=== PATIENT | female | born 1965 | race Caucasian/White ===

== ENCOUNTER 2016-10-14 12:09 | Emergency (ER) | payer OTHER ==
--- NOTE | 2016-10-14 13:30 | DIAGNOSTIC IMAGING REPORT ---
PROCEDURE: CT HEAD WITHOUT CONTRAST INDICATION: STROKE TECHNIQUE: Axial CT images were acquired through the head. Coronal and sagittal reformations were created. COMPARISON: None. FINDINGS: No intracranial hemorrhage or extraaxial fluid collections. Ventricles are normal in size, shape and position. There is no mass, mass effect or midline shift. The anguiano-white matter differentiation is normal. There is no edema. The calvarium is intact. The paranasal sinuses and mastoid air cells are normally aerated. The extracranial soft tissues and orbits are normal. IMPRESSION: 1. No CT evidence of acute intracranial process. 2. Findings discussed with Dr. Lujan at 1;[address] scans at this facility use dose modulation, iterative reconstruction, and/or weight-based dosing when appropriate to reduce radiation dose to as low as reasonably achievable.
--- NOTE | 2016-10-14 13:41 | DIAGNOSTIC IMAGING REPORT ---
PROCEDURE: CTA HEAD AND NECK INDICATION: STROKE SYMPTOMS TECHNIQUE: Axial thin-slice CTA images through the neck and head were acquired following uncomplicated administration of 90 CC Isovue 370 IV contrast. Coronal and sagittal MIP reformations were created. COMPARISON: Head CT 10/15/2015 FINDINGS: Head: Anterior circulation: No evidence of aneurysm, dissection or vasculitis. Posterior circulation: No evidence of aneurysm, dissection or vasculitis. Other findings: No evidence of emboli and/or vessel occlusion. Neck: Carotid system: No evidence of aneurysm, dissection or vasculitis. Vertebral system: No evidence of aneurysm, dissection or vasculitis. Other findings: No evidence of emboli and/or vessel occlusion. IMPRESSION: 1. Normal CT angiogram of the brain and head/neck. 2. Results were called to the emergency department at 01:30 p.m.
--- NOTE | 2016-10-14 15:06 | ED ORDER SUMMARY ---
..... Patient: JOE BILLS OrderSheet [facility] VisitID: [id number] [address] [place] [address] 51y, F Registration Date/Time: 10/14/2016 ORDER SHEET Weight: 67.1 kg (stated) Allergies: None GENERAL ORDERS: Conservation Scientist (Continuous) (12:32 10/14/2016 JBoardley R.N. per protocol) (12:32 JBoardley R.N.) Pulse oximeter (12:32 10/14/2016 JBoardley R.N. per protocol) (12:32 JBoardley R.N.) EKG - ER Stat (12:32 10/14/2016 JBoardley R.N. per protocol) (12:32 JBoardley R.N.) Vitals (12:32 10/14/2016 JBoardley R.N. per protocol) (12:32 JBoardley R.N.) CT Head wo Cont Urgent (12:36 10/14/2016 Frieda Aaron) (Ack 12:41 PWeiler ER Tech1) (13:17 PWeiler ER Tech1) CTA Head and Neck (No) (not needed) Urgent (12:36 10/14/2016 Frieda Aaron) (Ack 12:41 PWeiler ER Tech1) (13:17 PWeiler ER Tech1) Stroke Panel Stat (12:37 10/14/2016 Frieda Aaron) (Ack 12:41 PWeiler ER Tech1) (13:10 JBoardley R.N.) UA-Culture if indicated Urgent (13:42 10/14/2016 JBoardley R.N. per protocol) (Ack 13:43 PWeiler ER Tech1) (13:43 PWeiler ER Tech1) MEDICATION ORDERS: IV FLUIDS: IV Saline Lock (12:32 10/14/2016 JBoardley R.N. per protocol) (12:33 JBoardley R.N.) ORDER SHEET NOTES: [Electronically signed by Adonis Bauman R.N. (18:12 10/14/2016)] [Electronically signed by Tai Hawkins Dr. (16:56 10/15/2016)] [Electronically locked/signed by Adonis Bauman R.N. (18:12 10/14/2016)]
--- NOTE | 2016-10-14 15:06 | ED CLINICAL REPORT ---
Clinical Report - Physicians/Mid Levels [facility] [address] [place] [address] 10/14/2016 12:13 Patient: JOE BILLS Time Seen: 1215. Arrived- By private vehicle. Historian- patient. HISTORY OF PRESENT ILLNESS Chief Complaint: WEAKNESS. This started just prior to arrival today about 10:30am, patient was last known well (10:29am) and is still present. It was abrupt in onset and has been constant but is not gone now. The patient has had localized weakness of the right leg (moderate), right foot (moderate), left face (moderate), left leg (moderate) and left foot (moderate). She has had localized numbness of the right leg (moderate), right foot (moderate) and left face (moderate). No impaired speech or swallowing or recent fall. She has had visual disturbance with double vision. At its maximum deficit described as moderate. When seen in the E.D.,deficit described as moderate. No dizziness, altered mental status, seizure or blackouts. Usually is alert and oriented X3 and has normal mobility. (patient states she can not get the "clot busting drug." I don't know why. talk to my .). Similar symptoms previously: (a few times). Recent medical care: The patient was seen recently by a health care provider. REVIEW OF SYSTEMS No fever, chest pain, difficulty breathing or skin rash. All systems otherwise negative, except as recorded above. PAST HISTORY See nurses notes. Medications: LamoTRIgine Oral. Adderall Oral. TraZODone HCl Oral. Allergies: None. SOCIAL HISTORY Never smoker. No alcohol use or drug use. No recent travel. Is a local resident. ADDITIONAL NOTES The nursing notes have been reviewed. PHYSICAL EXAM Vital Signs: 10/14/2016 12:06 BP: 135/85. HR: 92. RR: 22. O2 saturation: 100%. Temp: 98.1 F. Pain level now: 0/10. Oxygen saturation normal. Appearance: Alert. No acute distress. Speech is not slurred. Head: Head atraumatic. Eyes: Pupils equal, round and reactive to light. ENT: Normal ENT inspection. Airway intact. Pharynx normal. Neck: Normal inspection. Neck supple. No meningeal signs. CVS: Normal heart rate and rhythm. Heart sounds normal. Pulses normal. Respiratory: No respiratory distress. Breath sounds normal. Abdomen: Soft and nontender. No organomegaly. Skin: Skin warm and dry. Normal skin color. No rash. Normal skin turgor. Extremities: Extremities exhibit normal ROM. No lower extremity edema. Neuro: Alert. Oriented X 3. Mood/affect normal. Speech normal. No abnormal finger-nose test. Normal gait. (4+/5 strength in the left lower extremity as well as left upper extremity. Left facial droop. Tongue deviates to the left. no pronator drift.). LABS, X-RAYS, AND EKG EKG: No acute ischemia. Normal sinus rhythm. Normal P waves. Normal ERNESTO. Normal QRS complex. Normal axis. Normal QT and QTc. No ST elevation or depression. The study has been interpreted contemporaneously. The study has been independently viewed by me. The EKG appears to be a good tracing. Laboratory Tests: UA-Culture if indicated: (JULI: 10/14/2016 13:35) ( MsgRcvd 10/14/2016 14:14) Final results Test Result Flag Units (Reference) URINE COLOR YELLOW URINE APPEARANCE CLEAR URINE GLUCOSE NEGATIVE (NEGATIVE) URINE BILIRUBIN NEGATIVE (NEGATIVE) URINE KETONE NEGATIVE (NEGATIVE) URINE SPECIFIC GRAVITY 1.010 (1.010-1.030) URINE PH 7.5 (5.0-8.0) URINE PROTEIN NEGATIVE (NEGATIVE) URINE UROBILINOGEN 0.2 EU/dL (0.2-1.0) URINE NITRITE NEGATIVE (NEGATIVE) URINE BLOOD NEGATIVE (NEGATIVE) URINE LEUK ESTERASE NEGATIVE (NEGATIVE) URINE RBC NONE SEEN rbc/hpf (0-1) URINE WBC 0-1 wbc/hpf (0-1) URINE EPITHELIAL CELLS 0-1 EPI/hpf (0-5) URINE BACTERIA NONE SEEN (NONE SEEN) URINE COMMENT CULT NOT INDICATED URINE CULTURES ARE SET-UP BASED ON THE FOLLOWING CRITERIA:POSITIVE NITRITEPOSITIVE LEUKOCYTE ESTERASEGREATER THAN 10 WHITE BLOOD CELLSMODERATE (2+) OR GREATER BACTERIA CBC w Diff: (JULI: 10/14/2016 12:20) ( MsgRcvd 10/14/2016 12:45) Final results Test Result Flag Units (Reference) WHITE BLOOD COUNT 3.9 L K/uL (4.5-11.5) RED BLOOD COUNT 4.57 M/uL (4.00-5.20) HEMOGLOBIN 13.8 gm/dL (12.0-16.0) HEMATOCRIT 40.5 % (36.0-46.0) MEAN CELL VOLUME 89 fL (80-100) MEAN CORPUSCULAR HGB 30 pg (26-34) MEAN CORPUSCULAR HGB CONC 34 g/dL (31-37) RED CELL DISTRIBUTION WIDTH 13.2 % (11.6-14.8) PLATELET COUNT 337 K/uL (150-400) NEUTROPHIL % 49.1 L % (50-75) LYMPH % 42.8 H % (25-40) MONO % 7.2 % (3-14) EOSINOPHIL % 0.4 % (0-4) BASOPHIL % 0.5 % (0-2) PT with INR: (JULI: 10/14/2016 12:20) ( MsgRcvd 10/14/2016 12:59) Final results Test Result Flag Units (Reference) INR 0.8 (0.8-1.2) Low Intensity Therapy: INR 1.5-2.0 PT range 18.5-23.1Mod.Intensity Therapy: INR 2.0-3.0 PT range 23.1-31.5High Intensity Therapy: INR 2.5-3.5 PT range 27.4-35.5High Intensity Therapy 2: INR 3.0-4.0 PT range 31.5-39.3 APTT 26 SECONDS (24-34) FIBRINOGEN 373 mg/dL (193-455) D-DIMER QUANTITATIVE < 0.27 L ug/mLFEU (0.27-0.52) The primary value of this quantitative assay relates toits negative predictive value (i.e. exclusion) of pulmonaryembolism/deep vein thrombosis/DIC.Elevated levels of d-dimer may also occur with:, age, cancer, inflammation, liver disease,post-op, infection, hematoma, coronary disease, peripheralarteriopathy, bleeding disorders and thrombolytic treatment.Results should be correlated with other clinical andradiological data.Testing Methodology: Latex Immunoassay CMP: (JULI: 10/14/2016 12:20) ( MsgRcvd 10/14/2016 12:57) Final results Test Result Flag Units (Reference) GLUCOSE 111 H mg/dL (70-110) BUN 22 H mg/dL (7-18) CREATININE 0.8 mg/dL (0.6-1.3) Estimated GFR >60 mL/min Estimated GFR- >60 mL/min Note: Persistent reduction over 3 months in eGFR<60 mL/min/1.73 m2 defines CKD. Patients with eGFR values>=60 mL/min/1.73 m2 may also have CKD if evidence ofpersistent proteinuria. Additional information may be foundat www.[email or web address].org. SODIUM 136 mmol/L (136-145) POTASSIUM 3.7 mmol/L (3.5-5.1) CHLORIDE 99 mmol/L (98-107) CARBON DIOXIDE 25 mmol/L (21-32) CALCIUM 9.5 mg/dL (8.5-10.1) TOTAL PROTEIN 8.1 g/dL (6.4-8.2) ALBUMIN 3.9 g/dL (3.3-5.0) BILIRUBIN, TOTAL 0.6 mg/dL (0.0-1.0) ALKALINE PHOSPHATASE 80 U/L (46-116) AST (SGOT) 19 U/L (15-37) ALT (SGPT) 30 U/L (12-78) . PROGRESS AND PROCEDURES Course of Care: the patient is a pleasant 51-year-old female presenting for evaluation of neurological symptoms. Patient reports that she is not to have tPA. Patient is not sure of the reason for this. Patient states that her will now. Patient was activated as a code stroke because of her focal neurological deficits. There are also acute in onset. Patient is agreeable to the treatment and plan. Laboratory studies including CT scan of the head with and without contrast has been ordered. Patient has a somewhat concerning story given that these have been happening frequently. Medical records have been requested from [facility]. Patient's medical records indicates that patient had a similar symptom and presentation last time at [facility]. Symptoms had spontaneously resolved. TPA was not given at that time. Was able to speak to the spouse who states that their neurologist cautioned them against using the clotbusting drug because of the complications would outweigh the benefits. Symptoms were likely to resolve spontaneously from their recollection of the conversation with neurology. In the emergency department, the patient's symptoms did significantly improved while here in the emergency department spontaneously. Patient without any signs of focal neurological deficits at this time. CT scan of laboratory studies are unremarkable. Because of the patient's rapid improvement of her symptoms, do not feel TPA is indicated. Also concern for other etiologies for the patient's focal neurological deficits including seizure typeabnormalities. Patient had already obtained a MRI was normal results according to her [facility] records. Patient will be encouraged to follow up with her primary care doctor and neurology. Patient states that she has an appointment in the next few days. Patient was monitored here in the emergency Department further until all of her symptoms had significantly improved or resolved. because of the patient's unusual history, do not fill patient is being admitted to the hospital require further emergency department workup/evaluation. Did offer monitoring in the emergency department and hospital under observation for possible TIA. Patient states she is starting had a complete workup which did not show anything. Patient states that her neurologist told her to go to the nearest hospital if there is an emergency however to follow up with them in [facility] if her symptoms did return. Discussed with the patient her workup here in the emergency department including her diagnosis, home care, follow-up, and return precautions. All questions have been answered. The patient expressed understanding of these instructions and was agreeable to them. Prior to patient's departure from the emergency department she is noted to have no facial droop. No weakness noted on examination. Patient is in no acute distress. No fever. No concern for Meningitis or serious bacterial infection at this time. Disposition: Discharged. Condition: good. CLINICAL IMPRESSION 10/14/2016 13:49 BP: 123/71. HR: 83. RR: 17. O2 saturation: 100%. Temp: 97.9 F. Blood pressure normal. Oxygen saturation normal. Multiple acute and recent transient ischemic attacks. Paresthesia (acute improved). INSTRUCTIONS Warnings: GENERAL WARNINGS: Return or contact your physician immediately if your condition worsens or changes unexpectedly, if not improving as expected, or if other problems arise. Specifically return if pain, vomiting, bleeding, breathing difficulty or fever. return of symptoms or other concerns. Your Current Medications: CONTINUE TAKING THE FOLLOWING MEDICATIONS: Adderall Oral. LamoTRIgine Oral. TraZODone HCl Oral. Follow-up: Return to the emergency department as needed. Follow up with your doctor in three days. Reason for referral: recheck today's concerns. Summary of care provided to patient via paper. Screening today revealed the patient's blood pressure to be in the normal range. The patient should follow up with a primary care provider for blood pressure management. Understanding of the discharge instructions verbalized by patient. (Electronically signed by Tai Hawkins Dr. 10/15/2016 16:56)
--- NOTE | 2016-10-14 15:06 | ED ORDER SUMMARY ---
..... Patient: JOE BILLS OrderSheet [facility] VisitID: [id number] [address] [place] [address] 51y, F Registration Date/Time: 10/14/2016 ORDER SHEET Weight: 67.1 kg (stated) Allergies: None GENERAL ORDERS: Ruffler (Continuous) (12:32 10/14/2016 JBoardley R.N. per protocol) (12:32 JBoardley R.N.) Pulse oximeter (12:32 10/14/2016 JBoardley R.N. per protocol) (12:32 JBoardley R.N.) EKG - ER Stat (12:32 10/14/2016 JBoardley R.N. per protocol) (12:32 JBoardley R.N.) Vitals (12:32 10/14/2016 JBoardley R.N. per protocol) (12:32 JBoardley R.N.) CT Head wo Cont Urgent (12:36 10/14/2016 Frieda Aaron) (Ack 12:41 PWeiler ER Tech1) (13:17 PWeiler ER Tech1) CTA Head and Neck (No) (not needed) Urgent (12:36 10/14/2016 Frieda Aaron) (Ack 12:41 PWeiler ER Tech1) (13:17 PWeiler ER Tech1) Stroke Panel Stat (12:37 10/14/2016 Frieda Aaron) (Ack 12:41 PWeiler ER Tech1) (13:10 JBoardley R.N.) UA-Culture if indicated Urgent (13:42 10/14/2016 JBoardley R.N. per protocol) (Ack 13:43 PWeiler ER Tech1) (13:43 PWeiler ER Tech1) MEDICATION ORDERS: IV FLUIDS: IV Saline Lock (12:32 10/14/2016 JBoardley R.N. per protocol) (12:33 JBoardley R.N.) ORDER SHEET NOTES: [Electronically signed by Adonis Bauman R.N. (18:12 10/14/2016)] [Electronically signed by Tai Hawkins Dr. (16:56 10/15/2016)] [Electronically locked/signed by Adonis Bauman R.N. (18:12 10/14/2016)]
--- NOTE | 2016-10-14 15:06 | ED NURSING NOTES ---
Clinical Report - Nurses [facility] [address] [place] [address] 10/14/2016 12:13 Patient: JOE BILLS TRIAGE Triage time 12:06. Acuity: LEVEL 3. Chief Complaint: SYNCOPE. 12:10/14/16. 12:10/14/16. Alert. ( Pt arrives by EMS. Per EMS patient has been having syncope off and on. Last time was 4 weeks ago. Per EMS, pt had surgical intervention with possible "slipping of a disk" requiring cortisone injections. Per EMS, her syncope and weakness has become worse.). SEPSIS SCREEN: Sepsis Screen. Negative (no infection suspected/documented). AVE COMA SCORE: [place] Coma Scale: 15- eyes open spontaneously (4); best verbal response- oriented x 4 (5); best motor response- obeys commands (6). --12:35 Adonis Bauman R.N. 12:06 10/14/16. BP: 135/85. HR: 92. RR: 22. O2 saturation: 100% on room air. Temp: 98.1 F (oral). Pain level now: 0/10. --12:35 Adonis Bauman R.N. Weight: 67.1 kg stated. Height/Length: 66 inches Per Patient. BMI: 23.9. --12:13 Adonis Bauman R.N. Medications TraZODone HCl Oral. --12:34 Adonis Bauman R.N. Adderall Oral. --12:34 Adonis Bauman R.N. LamoTRIgine Oral. --12:34 Adonis Bauman R.N. Allergies None. --12:35 Adonis Bauman R.N. Medication/allergy information source: the patient and patient's family and EMS. --12:35 Adonis aBuman R.N. History Arrived by EMS. Historian: patient. Accompanied by family. [facility] 12:10/14/16. This started today. Patient was witnessed to be last known well (1030). ( Pt drove self to daughters house, EMS was called). She has had new onset of weakness of the left face, arm, leg and foot. Treatment EVENT SPECIALIST: None. See EMS report. EMS treatment EVENT SPECIALIST verbally communicated and report reviewed. See report. Finger stick glucose performed (123). BP: 138 / 82. HR: 88. RR: 18. O2 saturation: 98 % room air. ( FAST exam was negative by eval by EMS, pt came in by BLS). PAST MEDICAL HX: Immunizations: up-to-date. Last normal menstrual period- 1 month ago. SOCIAL HX: Never smoker. No alcohol use or drug use. No infectious disease exposure. ABUSE ASSESSMENT: No report of abuse. FALL RISK ASSESSMENT: Fall risk assessment completed. No fall risk identified. NUTRITIONAL RISK ASSESSMENT: The nutritional risk assessment revealed no deficiencies. FUNCTIONAL ASSESSMENT: Functional assessment: no impairments noted. LEARNING NEEDS ASSESSMENT: The learning needs assessment revealed no barriers. SKIN INTEGRITY ASSESSMENT: Skin integrity risk assessment completed. No skin integrity risk identified. --12:35 Adonis Bauman R.N. PROBLEMS: Cortisone Injection for Spinal Pain. TIA - Transient Ischemic Attack. --12:29 Adonis Bauman R.N. PTSD. Bipolar Disorder. ADHD - Attention Deficit Hyperactivity Disorder. --12:35 Adonis Bauman R.N. ADDITIONAL SURGERIES: C-5-C-6 fusion. --12:29 Adonis Bauman R.N. Assessment 12:10/14/16. --12:35 Adonis Bauman R.N. Interventions 12:10/14/16. 12:10/14/16. ID and allergy band on patient. To treatment room. --12:35 Adonis Bauman R.N. PHYSICAL ASSESSMENT 12:10/14/16. To room via stretcher. GENERAL / NEURO / PSYCH: Alert. Oriented X 4. Speech within normal limits. Patient appears well-nourished and neat and clean. ( Left arm, left leg weak as compared to right). HEENT: Pupils equal, round and reactive to light. RESPIRATORY: Respirations not labored. CVS: Normal sinus rhythm noted. SKIN: Skin is warm and dry. --12:17 Adonis Bauman R.N. NURSING PROGRESS NOTES 12:16 10/14/16. Cardiac rhythm: normal sinus rhythm. The plan of care for this patient has been created. site monitor, pulse oximeter and NIBP monitor placed on patient; monitor alarms on. EKG time: (1218). EKG was ordered, performed by a tech and shown to the ED physician. Patient gowned. Head of bed elevated. Reassurance given. Two patient identifiers checked. Call light placed in reach. Side rails up x 2. Bed placed in lowest position. Brakes of bed on. Patient ready for evaluation- chart flagged and ED physician notified. --12:17 Adonis Bauman R.N. 12:33 10/14/2016 Site #1 started via IV in the right antecubital space with an 20g angiocath, with aseptic technique and good blood return; one attempt. Blood drawn: rainbow set. Labeled in the presence of the patient and sent to the lab. Saline lock flushed with 10 mL saline. --12:33 Adonis Bauman R.N. 12:39 10/14/16. ( MD at bedside, at 1208, eval completed). --12:39 Adonis Bauman R.N. 12:40 10/14/16. ( Daughter at bedside, Code Stroke not called overhead, CT scanner is not clear at this time for CT). --12:40 Adonis Bauman R.N. 12:40 10/14/16. Cardiac rhythm: normal sinus rhythm. --12:40 Adonis Bauman R.N. 12:40 10/14/16. BP: 151/91. HR: 100. RR: 22. O2 saturation: 100% on nasal cannula at 2 liters/minute. --12:40 Adonis Bauman R.N. Patient transported to CT by stretcher with tech. --12:51 Vale Bellamy R.N. Patient returned from CT by stretcher with tech. --13:15 Vale Bellamy R.N. 13:19 10/14/16. Cardiac rhythm: normal sinus rhythm; (83). --13:19 Adonis Bauman R.N. 13:18 10/14/16. BP: 125/76. HR: 81. RR: 19. O2 saturation: 100% on nasal cannula at 2 liters/minute. --13:19 Adonis Bauman R.N. 8 fr in/out catheterization. During procedure hand hygiene observed and sterile equipment and aseptic technique used. Return of 300 mL yellow-colored clear urine; odor is normal. She tolerated procedure well. Patient ID band checked for patient name and birthdate: patient confirmed. Instructions provided to collect clean catch urine and patient verbalized understanding. Catheterized urine collected with return of yellow-colored clear urine; odor is normal; sample sent to lab for urinalysis and culture. Specimen labeled in the presence of the patient. --13:35 Vale Bellamy R.N. 13:54 10/14/16. Cardiac rhythm: normal sinus rhythm. --13:54 Adonis Bauman R.N. 13:49 10/14/16. BP: 123/71. HR: 83. RR: 17. O2 saturation: 100% on nasal cannula at 2 liters/minute. Temp: 97.9 F (oral). --13:54 Adonis Bauman R.N. Intake & Output 13:55 10/14/16. Urine: 300 mL. --13:55 Adonis Bauman R.N. NIH STROKE SCALE: 12:36 10/14/16. 12:38 10/14/16. Score 7. Level of Consciousness: drowsy (1). LOC Questions: both (0). LOC Commands: both (0). Best gaze: normal (0). Visual field loss: none (0). Facial palsy: minor (1) and (Left facial). Motor arm: no drift right arm (0) and drift left arm (1). Motor leg: no drift right leg (0) and no drift left leg (0). Limb ataxia: one limb (1) and (Left arm). Sensory loss: mild to moderate (1). Aphasia: mild to moderate (1). Dysarthria: mild to moderate (1). Extinction and inattention: none (0). --12:38 Adonis Bauman R.N. 15:10 10/14/16. Score 0. Level of Consciousness: alert (0). LOC Questions: both (0). LOC Commands: both (0). Best gaze: normal (0). Visual field loss: none (0). Facial palsy: normal (0). Motor arm: no drift right arm (0) and no drift left arm (0). Motor leg: no drift right leg (0) and no drift left leg (0). Limb ataxia: none (0). Sensory loss: none (0). Aphasia: none (0). Dysarthria: normal (0). Extinction and inattention: none (0). --15:10 Adonis Bauman R.N. DISPOSITION / DISCHARGE 15:10/14/2016 Site #1 removed upon discharge. Catheter intact. Bandaid applied. --15:09 Adonis Bauman R.N. 15:10/14/16. Cardiac rhythm: normal sinus rhythm. Condition at departure: improved. The goals identified in the patient's plan of care were met. ( Pt feels better and will follow up with PCP, CARLIN). No learning barriers present. Discharge instructions provided and reviewed with the patient. Reviewed warnings. Reviewed medication(s). Treatments reviewed. Patient verbalized understanding. Written instructions provided in Finnish. The patient was discharged by the physician. She was discharged home and accompanied by family. She left the Emergency Department ambulatory and via private vehicle. Family member driving. FALL RISK ASSESSMENT: Fall risk assessment completed. No fall risk identified. --15:11 Adonis Bauman R.N. 15:08 10/14/16. BP: 119/72. HR: 80. RR: 15. O2 saturation: 99% on room air. Temp: 98.3 F (oral). Pain level now: 0/10. --15:11 Adonis Bauman R.N. 15:10/14/16. Departure time: 15:Oct 14 2016. --15:11 Adonis Bauman R.N. Locked/Released at 10/14/2016 18:12 by Adonis Bauman R.N.
--- NOTE | 2016-10-14 15:06 | ED NURSING NOTES ---
Clinical Report - Nurses [facility] [address] [place] [address] 10/14/2016 12:13 Patient: JOE BILLS TRIAGE Triage time 12:06. Acuity: LEVEL 3. Chief Complaint: SYNCOPE. 12:10/14/16. 12:10/14/16. Alert. ( Pt arrives by EMS. Per EMS patient has been having syncope off and on. Last time was 4 weeks ago. Per EMS, pt had surgical intervention with possible "slipping of a disk" requiring cortisone injections. Per EMS, her syncope and weakness has become worse.). SEPSIS SCREEN: Sepsis Screen. Negative (no infection suspected/documented). AVE COMA SCORE: [place] Coma Scale: 15- eyes open spontaneously (4); best verbal response- oriented x 4 (5); best motor response- obeys commands (6). --12:35 Adonis Bauman R.N. 12:06 10/14/16. BP: 135/85. HR: 92. RR: 22. O2 saturation: 100% on room air. Temp: 98.1 F (oral). Pain level now: 0/10. --12:35 Adonis Bauman R.N. Weight: 67.1 kg stated. Height/Length: 66 inches Per Patient. BMI: 23.9. --12:13 Adonis Bauman R.N. Medications TraZODone HCl Oral. --12:34 Adonis Bauman R.N. Adderall Oral. --12:34 Adonis Bauman R.N. LamoTRIgine Oral. --12:34 Adonis Bauman R.N. Allergies None. --12:35 Adonis Bauman R.N. Medication/allergy information source: the patient and patient's family and EMS. --12:35 Adonis Bauman R.N. History Arrived by EMS. Historian: patient. Accompanied by family. Primary [facility] 12:10/14/16. This started today. Patient was witnessed to be last known well (1030). ( Pt drove self to daughters house, EMS was called). She has had new onset of weakness of the left face, arm, leg and foot. Treatment SALES AGENT FINANCIAL REPORT SERVICE: None. See EMS report. EMS treatment SALES AGENT FINANCIAL REPORT SERVICE verbally communicated and report reviewed. See report. Finger stick glucose performed (123). BP: 138 / 82. HR: 88. RR: 18. O2 saturation: 98 % room air. ( FAST exam was negative by eval by EMS, pt came in by BLS). PAST MEDICAL HX: Immunizations: up-to-date. Last normal menstrual period- 1 month ago. SOCIAL HX: Never smoker. No alcohol use or drug use. No infectious disease exposure. ABUSE ASSESSMENT: No report of abuse. FALL RISK ASSESSMENT: Fall risk assessment completed. No fall risk identified. NUTRITIONAL RISK ASSESSMENT: The nutritional risk assessment revealed no deficiencies. FUNCTIONAL ASSESSMENT: Functional assessment: no impairments noted. LEARNING NEEDS ASSESSMENT: The learning needs assessment revealed no barriers. SKIN INTEGRITY ASSESSMENT: Skin integrity risk assessment completed. No skin integrity risk identified. --12:35 Adonis Bauman R.N. PROBLEMS: Cortisone Injection for Spinal Pain. TIA - Transient Ischemic Attack. --12:29 Adonis Bauman R.N. PTSD. Bipolar Disorder. ADHD - Attention Deficit Hyperactivity Disorder. --12:35 Adonis Bauman R.N. ADDITIONAL SURGERIES: C-5-C-6 fusion. --12:29 Adonis Bauman R.N. Assessment 12:10/14/16. --12:35 Adonis Bauman R.N. Interventions 12:10/14/16. 12:10/14/16. ID and allergy band on patient. To treatment room. --12:35 Adonis Bauman R.N. PHYSICAL ASSESSMENT 12:10/14/16. To room via stretcher. GENERAL / NEURO / PSYCH: Alert. Oriented X 4. Speech within normal limits. Patient appears well-nourished and neat and clean. ( Left arm, left leg weak as compared to right). HEENT: Pupils equal, round and reactive to light. RESPIRATORY: Respirations not labored. CVS: Normal sinus rhythm noted. SKIN: Skin is warm and dry. --12:17 Adonis Bauman R.N. NURSING PROGRESS NOTES 12:16 10/14/16. Cardiac rhythm: normal sinus rhythm. The plan of care for this patient has been created. reducing system operator, pulse oximeter and NIBP monitor placed on patient; monitor alarms on. EKG time: (1218). EKG was ordered, performed by a tech and shown to the ED physician. Patient gowned. Head of bed elevated. Reassurance given. Two patient identifiers checked. Call light placed in reach. Side rails up x 2. Bed placed in lowest position. Brakes of bed on. Patient ready for evaluation- chart flagged and ED physician notified. --12:17 Adonis Bauman R.N. 12:33 10/14/2016 Site #1 started via IV in the right antecubital space with an 20g angiocath, with aseptic technique and good blood return; one attempt. Blood drawn: rainbow set. Labeled in the presence of the patient and sent to the lab. Saline lock flushed with 10 mL saline. --12:33 Adonis Bauman R.N. 12:39 10/14/16. ( MD at bedside, at 1208, eval completed). --12:39 Adonis Bauman R.N. 12:40 10/14/16. ( Daughter at bedside, Code Stroke not called overhead, CT scanner is not clear at this time for CT). --12:40 Adonis Bauman R.N. 12:40 10/14/16. Cardiac rhythm: normal sinus rhythm. --12:40 Adonis Bauman R.N. 12:40 10/14/16. BP: 151/91. HR: 100. RR: 22. O2 saturation: 100% on nasal cannula at 2 liters/minute. --12:40 Adonis Bauman R.N. Patient transported to CT by stretcher with tech. --12:51 Vale Bellamy R.N. Patient returned from CT by stretcher with tech. --13:15 Vale Bellamy R.N. 13:19 10/14/16. Cardiac rhythm: normal sinus rhythm; (83). --13:19 Adonis Bauman R.N. 13:18 10/14/16. BP: 125/76. HR: 81. RR: 19. O2 saturation: 100% on nasal cannula at 2 liters/minute. --13:19 Adonis Bauman R.N. 8 fr in/out catheterization. During procedure hand hygiene observed and sterile equipment and aseptic technique used. Return of 300 mL yellow-colored clear urine; odor is normal. She tolerated procedure well. Patient ID band checked for patient name and birthdate: patient confirmed. Instructions provided to collect clean catch urine and patient verbalized understanding. Catheterized urine collected with return of yellow-colored clear urine; odor is normal; sample sent to lab for urinalysis and culture. Specimen labeled in the presence of the patient. --13:35 Vale Bellamy R.N. 13:54 10/14/16. Cardiac rhythm: normal sinus rhythm. --13:54 Adonis Bauman R.N. 13:49 10/14/16. BP: 123/71. HR: 83. RR: 17. O2 saturation: 100% on nasal cannula at 2 liters/minute. Temp: 97.9 F (oral). --13:54 Adonis Bauman R.N. Intake & Output 13:55 10/14/16. Urine: 300 mL. --13:55 Adonis Bauman R.N. NIH STROKE SCALE: 12:36 10/14/16. 12:38 10/14/16. Score 7. Level of Consciousness: drowsy (1). LOC Questions: both (0). LOC Commands: both (0). Best gaze: normal (0). Visual field loss: none (0). Facial palsy: minor (1) and (Left facial). Motor arm: no drift right arm (0) and drift left arm (1). Motor leg: no drift right leg (0) and no drift left leg (0). Limb ataxia: one limb (1) and (Left arm). Sensory loss: mild to moderate (1). Aphasia: mild to moderate (1). Dysarthria: mild to moderate (1). Extinction and inattention: none (0). --12:38 Adonis Bauman R.N. 15:10 10/14/16. Score 0. Level of Consciousness: alert (0). LOC Questions: both (0). LOC Commands: both (0). Best gaze: normal (0). Visual field loss: none (0). Facial palsy: normal (0). Motor arm: no drift right arm (0) and no drift left arm (0). Motor leg: no drift right leg (0) and no drift left leg (0). Limb ataxia: none (0). Sensory loss: none (0). Aphasia: none (0). Dysarthria: normal (0). Extinction and inattention: none (0). --15:10 Adonis Bauman R.N. DISPOSITION / DISCHARGE 15:10/14/2016 Site #1 removed upon discharge. Catheter intact. Bandaid applied. --15:09 Adonis Bauman R.N. 15:10/14/16. Cardiac rhythm: normal sinus rhythm. Condition at departure: improved. The goals identified in the patient's plan of care were met. ( Pt feels better and will follow up with PCP, CARLIN). No learning barriers present. Discharge instructions provided and reviewed with the patient. Reviewed warnings. Reviewed medication(s). Treatments reviewed. Patient verbalized understanding. Written instructions provided in [place]. The patient was discharged by the physician. She was discharged home and accompanied by family. She left the Emergency Department ambulatory and via private vehicle. Family member driving. FALL RISK ASSESSMENT: Fall risk assessment completed. No fall risk identified. --15:11 Adonis Bauman R.N. 15:08 10/14/16. BP: 119/72. HR: 80. RR: 15. O2 saturation: 99% on room air. Temp: 98.3 F (oral). Pain level now: 0/10. --15:11 Adonis Bauman R.N. 15:10/14/16. Departure time: 15:Oct 14 2016. --15:11 Adonis Bauman R.N. Locked/Released at 10/14/2016 18:12 by Adonis Bauman R.N.
--- NOTE | 2016-10-15 16:56 | ED MED RECONCILIATION SUMMARY ---
Patient: JOE BILLS Medication Reconciliation Report [facility] VisitID: [id number] [address] [place] [place] [address] 51y, F Registration Date/Time: 10/14/2016 Weight: 67.1 kg Height/Length: 66 in. BMI: 23.9 ALLERGIES: None The patient's Home Medications are listed below: CONTINUE TAKING THE FOLLOWING MEDICATIONS: Adderall Oral LamoTRIgine Oral TraZODone HCl Oral The source(s) of the original Home Medication information: EMS patient's family member patient The following Medications were given to the patient in the Emergency Department: None. The following Medications were prescribed to the patient: None.
--- NOTE | 2016-10-15 16:56 | ED MAR SUMMARY ---
..... Medication Administration Record [facility] [address] [place], [place] [id number] Patient: JOE BILLS Visit ID: [id number] 51y, F Weight: 67.1 kg Height/Length: 66 in BMI: 23.9 ALLERGIES: None
--- NOTE | 2016-10-15 16:56 | ED MED RECONCILIATION SUMMARY ---
Patient: JOE BILLS Medication Reconciliation Report [facility] VisitID: [id number] [address] [place] [address] 51y, F Registration Date/Time: 10/14/2016 Weight: 67.1 kg Height/Length: 66 in. BMI: 23.9 ALLERGIES: None The patient's Home Medications are listed below: CONTINUE TAKING THE FOLLOWING MEDICATIONS: Adderall Oral LamoTRIgine Oral TraZODone HCl Oral The source(s) of the original Home Medication information: EMS patient's family member patient The following Medications were given to the patient in the Emergency Department: None. The following Medications were prescribed to the patient: None.
--- NOTE | 2016-10-15 16:56 | ED DISCHARGE INSTRUCTIONS ---
Patient: JOE BILLS General Instructions [facility] VisitID: [id number] [address] [place] [address] 51y, F Registration Date/Time: 10/14/2016 10/14/2016 13:49 BP: 123/71. HR: 83. RR: 17. O2 saturation: 100%. Temp: 97.9 F. Blood pressure normal. Oxygen saturation normal. Multiple acute and recent transient ischemic attacks. Paresthesia (acute improved). INSTRUCTIONS Warnings: GENERAL WARNINGS: Return or contact your physician immediately if your condition worsens or changes unexpectedly, if not improving as expected, or if other problems arise. Specifically return if pain, vomiting, bleeding, breathing difficulty or fever. return of symptoms or other concerns. Your Current Medications: CONTINUE TAKING THE FOLLOWING MEDICATIONS: Adderall Oral. LamoTRIgine Oral. TraZODone HCl Oral. Follow-up: Return to the emergency department as needed. Follow up with your doctor in three days. Reason for referral: recheck today's concerns. Summary of care provided to patient via paper. Screening today revealed the patient's blood pressure to be in the normal range. The patient should follow up with a primary care provider for blood pressure management. Understanding of the discharge instructions verbalized by patient. ADDITIONAL INFORMATION TIA: Transient Ischemic Attack The spell you had today is called a TIA (mini-stroke). It is caused by a temporary decrease or blockage of blood flow to a part of your brain. A TIA often happens when a blood clot travels to a blood vessel in the brain. The clot reduces or blocks blood flow, resulting in the symptoms you had. After a short while, the clot dissolves, blood flows again, and the symptoms disappear. Persons with atherosclerosis (hardening of the arteries) or atrial fibrillation (a type of irregular heartbeat) are at higher risk of TIA. TIA causes temporary symptoms similar to a stroke, but lasts less than 24 hours. A full stroke causes symptoms that last more than 24 hours and may be permanent. Once you have had a TIA, you are at risk of having a full stroke. Therefore, be sure to follow up with your doctor for further evaluation. This may include an ultrasound of the arteries in your neck and an evaluation of your heart. If problems are found, your doctor will recommend treatment with medications and/or procedures. Medications to reduce your chance of having another TIA (and stroke) include those that prevent blood clots, such as antiplatelet medicines and anticoagulant medicines. Home care The following guidelines will help you take care of yourself at home: If all of your symptoms have resolved, there is nothing special that you need to do today. Rest at home and avoid exertion for the rest of the day. If your doctor has prescribed antiplatelet medication, take it as directed. Other ways to reduce your risk of a stroke Hypertension, diabetes, elevated cholesterol, and smoking are risk factors for stroke and heart disease. These can be controlled through medications, diet and lifestyle changes. Taking daily aspirin (or similar medications) is a simple but important part of preventing stroke. Follow-up care Call your doctor for an appointment in the next few days for another evaluation. Additional tests may be needed. If you had an X-ray, CT scan, MRI scan, or ECG (electrocardiogram), it will be reviewed by a specialist. Youll be notified of any new findings that will affect your care. When to call 911 or emergency services Get immediate medical attention if any of the following occur: Any of your TIA symptoms return New problems with speech, vision, walking, or weakness or numbeness of the face or on one side of the body Severe headache, fainting spell, dizziness, or seizure Paraesthesias Paraesthesia refers to a burning or prickling sensation that is sometimes felt in the hands, arms, legs or feet. It can also occur in other parts of the body. It can also feel like tingling or numbness, skin crawling or itching.The sensation is usually painless. Most people have experienced pins and needles. This feeling happens when legs have been crossed for too long and pressure is placed on a nerve. This is a temporary paraesthesia. It quickly goes away once the pressure is relieved. There are many possible causes for chronic paraesthesias. These include such disorders as stroke, herniated disk (pressing on a nerve), trapped nerve in the shoulder, elbow or wrist (such as carpal tunnel syndrome), vitamin deficiencies or even certain medicines. Laboratory tests are needed to make an accurate diagnosis. These tests may include blood tests, X-ray, CT (computerized tomography) scan or a muscle test (electromyography).Depending on the cause, treatment may include physical therapy. Home Care: Do not make any changes to your medicines without advice from your doctor. If vitamins have been prescribed, remember to take them daily at the recommended dose. Because of a decrease in feeling, a numb hand or foot may be more prone to injury. Take care to protect these areas from cuts, bumps, bruises, davila or other injury. Keep your nails trimmed and wash your hands and feet often. Wear shoes that fit well to avoid pressure points, blisters and ulcers. Look at your hands and feet carefully (including the soles of your feet and between your toes) at least once a week and notify your doctor of any open wounds or signs of infection. Follow Up with your doctor or as advised by our staff. You may need further testing to determine the exact cause of your paraesthesia. [NOTE: If blood tests, X-ray, CT scan or electromyography were done, specialists will review them. You will be notified of any new findings that may affect your care.] Get Prompt Medical Attention if any of the following occur: Numbness or weakness of the face, one arm or one leg Slurred speech, confusion, trouble speaking, walking or seeing Severe headache, fainting spell, dizziness or seizure Chest, arm, neck or upper back pain Loss of bladder or bowel control Open wound with redness, swelling or pus You have been given the following additional information: TIA: Transient Ischemic Attack Paraesthesias (Electronically signed by Tai Hawkins Dr. 10/15/2016 16:56)
--- NOTE | 2016-10-15 16:56 | ED MAR SUMMARY ---
..... Medication Administration Record [facility] [address] [place], [place] [id number] Patient: JOE BILLS Visit ID: [id number] 51y, F Weight: 67.1 kg Height/Length: 66 in BMI: 23.9 ALLERGIES: None
== END 2016-10-14 15:11 | disposition home or self-care (01) ==
LOC: ED SRH 12:09
DX: G45.9 Transient cerebral ischemic attack, unspecified (principal); R20.2 Paresthesia of skin; F31.9 Bipolar disorder, unspecified; Z79.899 Other long term (current) drug therapy
CPT/HCPCS: 81460; 90004; 90100; 91556; 94001; 94050; 94060; 95059